=== PATIENT | male | born 1945 | race Caucasian/White ===

== ENCOUNTER → 2016-06-30 | Outpatient (CLI) | payer MEDICARE, OTHER | END | disposition home or self-care (01) | LOC: GMAB 14:54 | PROVIDERS: ATTEND Family Medicine | DX: N39.0 Urinary tract infection, site not specified (principal); Z12.5 Encounter for screening for malignant neoplasm of prostate; R53.82 Chronic fatigue, unspecified; I10 Essential (primary) hypertension | CPT/HCPCS: 84403; 84443; 87086; 87088; 87186; G0103 ==

== ENCOUNTER → 2016-09-01 | Outpatient (CLI) | payer MEDICARE, OTHER | END | disposition home or self-care (01) | LOC: GMAB 14:51 | PROVIDERS: ATTEND Family Medicine | DX: R53.82 Chronic fatigue, unspecified (principal) ==

== ENCOUNTER → 2017-07-06 | Outpatient (CLI) | payer MEDICARE, OTHER | LOC: GMAB 14:58 | PROVIDERS: ATTEND Family Medicine | DX: E53.8 Deficiency of other specified B group vitamins (principal); R53.82 Chronic fatigue, unspecified; I10 Essential (primary) hypertension; Z12.5 Encounter for screening for malignant neoplasm of prostate | CPT/HCPCS: 82607; 82746; 84403; 84443; G0103 ==

== ENCOUNTER → 2017-10-08 | Outpatient (CLI) | payer MEDICARE, OTHER ==
--- NOTE | 2017-10-08 10:33 | RAD ---
EXAM DESCRIPTION: Elbow,Left 3 Views CLINICAL HISTORY: PAIN COMPARISON: None Available. TECHNIQUE: AP, Lateral, and Oblique FINDINGS: Three-view left elbow show deformity with cystic change in the distal humerus. Ossific densities are seen in the posterior elbow joint which may be loose bodies. Ossific densities anteriorly may be loose bodies in the joint or dystrophic calcification. There may be a joint effusion. Radial head and capitellum are normally aligned. The rotated ulnotrochlear joint is seen with spurring at the olecranon and coronoid processes. Spurring is seen at the radial head neck junction. There is complete cartilage loss with sclerosis and eburnation seen on the AP view. 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 Electronically signed by: Ryan Castro MD 10/08/2017 10:31 AM CDT
== END ==
LOC: RAD 08:40
PROVIDERS: ATTEND Orthopaedic Surgery
DX: M25.522 Pain in left elbow (principal)

== ENCOUNTER → 2018-01-20 | Outpatient (CLI) | payer MEDICARE, OTHER | LOC: GMAE 14:50 | PROVIDERS: ATTEND Family Medicine | DX: D64.9 Anemia, unspecified (principal) ==

== ENCOUNTER → 2018-02-18 | Outpatient (CLI) | payer MEDICARE, OTHER | LOC: LAB.O 12:49 | PROVIDERS: ATTEND Internal Medicine Gastroenterology | DX: R19.2 Visible peristalsis (principal) ==

== ENCOUNTER → 2018-07-08 | Outpatient (CLI) | payer MEDICARE, OTHER | LOC: GMAE 10:11 | PROVIDERS: ATTEND Family Medicine | DX: I10 Essential (primary) hypertension (principal) ==

== ENCOUNTER → 2019-02-15 | Outpatient (CLI) | payer MEDICARE, OTHER ==
--- NOTE | 2019-02-16 09:47 | MRI ---
EXAM DESCRIPTION: Lumbar Spine w/o Contrast : Magnetic Resonance Imaging. CLINICAL HISTORY: RADICULOPATHY COMPARISON: LUMBAR TECHNIQUE: Multiplanar, multiple standard sequences, non contrast MRI, lumbar spine. FINDINGS: L5-S1: The disc is well visualized on axial T2 series 501, image 3. Disc desiccation and minimal disc space loss. Tiny posterior midline bulge. Posterior elements unremarkable. Bilateral foramina are patent. L4-L5: Trace anterolisthesis. Disc desiccation with disc space maintained. Bilateral hypertrophic facet arthrosis with effusion in the right facet and thickened posterior ligaments. AP canal diameter 9 mm. Disc bulge into the left foramen with focal hyperintense T2 annular fissure. Moderate foraminal narrowing. Mild right foraminal narrowing. Edema posterior to right facet. L3-L4: Disc desiccation and tiny posterior bulge. Disc space maintained. Hypertrophic bilateral facet arthrosis and thickening of the ligaments. AP canal diameter 12 mm. Mild bilateral foraminal narrowing. L2-L3: Disc desiccation with disc space maintained. Tiny posterior bulge. Bilateral mild facet arthrosis and ligament thickening with mild canal narrowing. Bilateral foramina are patent. Normal signal in the L1-2 disc with anterior bulging and disc space maintained. No posterior bulging. Canal and foramina are patent. Posterior elements unremarkable. Circumscribed hyperintense T1 and T2 hemangioma anterior L2 vertebral body underlying the superior endplate. Normal signal in the T12-L1 disc with disc space maintained. Posterior elements unremarkable. Canal and foramina are patent. Conus termination is below the disc space. No significant scoliosis. Paravertebral soft tissues negative.. Distal cord normal signal and caliber. Minimal marrow edema bilateral L5 pedicles. Normal marrow signal in the remaining vertebral bodies and the posterior elements. Vertebral bodies are not compressed at any level. IMPRESSION: 1. Multifactorial mild central canal stenosis at L4-L5 with trace anterolisthesis. Disc bulge in the left foramen annular fissure abutting the left L4 nerve. Minimal edema posterior to the right facet with bilateral arthrosis. 2. Multiple levels of desiccated discs. Moderate bulge at L2-L3 without canal stenosis. Bilateral marrow edema in the L5 pedicles is most likely a stress reaction with no definite fractures. Electronically signed by: Hernan Xavier MD 02/16/2019 9:45 AM CDT
== END ==
LOC: MRI 10:00
PROVIDERS: ATTEND Family Medicine
DX: M51.16 Intervertebral disc disorders with radiculopathy, lumbar region (principal); M48.061 Spinal stenosis, lumbar region without neurogenic claudication; M43.16 Spondylolisthesis, lumbar region

== ENCOUNTER 2020-04-20 13:09 | Emergency (ER) | payer MEDICARE, OTHER ==
--- NOTE | 2020-04-20 13:37 | ED.PDOC ---
History of Present Illness - General Chief Complaint: Trauma Stated Complaint: fall left elbow and left knee Time Seen by Provider: 04/20/20 13:35 Source: patient, RN notes reviewed, Vital Signs reviewed, family - History of Present Illness Initial Comments: This is a 74-year-old male with longstanding history of degenerative changes in the left elbow presenting to the emergency department with left elbow swelling and pain after a mechanical ground-level fall that occurred yesterday. He is taken ibuprofen without any improvement. He reports decreased range of motion to the elbow due to pain. He has had similar symptoms before in the past and required a aspiration of joint fluid. He denies any fever. He denies any head injury or loss of consciousness. He denies any neck or back pain. His only other injury is superficial abrasions over the left knee and tib-fib. Last DTaP is unknown. Allergies/Adverse Reactions: Allergies NO KNOWN ALLERGY Allergy (Unverified 04/20/20 13:39) Home Medications: Ambulatory Orders Acetaminophen W/ Codeine [Tylenol/Codeine #4 300-60 mg] 1 - 2 tablet PO Q6H PRN #20 tab 04/20/20 Apixaban [Eliquis] 04/20/20 Atorvastatin Calcium 40 mg PO 04/20/20 Losartan Potassium 50 mg PO 04/20/20 Pramipexole Dihydrochloride [Pramipexole Dihydrochlori] 0.125 mg PO 04/20/20 Sotalol HCl 80 mg PO DAILY 04/20/20 Review of Systems - Review of Systems Constitutional: Denies: chills, fever EENTM: Denies: eye pain, nose congestion Respiratory: Denies: cough, orthopnea, short of breath Cardiology: Denies: chest pain, edema, palpitations Gastrointestinal/Abdominal: Denies: abdominal pain, nausea, vomiting Genitourinary: Denies: dysuria, hematuria Musculoskeletal: States: joint pain, joint swelling. Denies: back pain, neck pain Skin: States: lesions. Denies: rash Past Medical History (General) - Patient Medical History Hx Cardiac Disorders: Yes Hx Congestive Heart Failure: No Hx Pacemaker: No Hx Hypertension: Yes - since 15 yr old Hx Diabetes: No Hx MRSA: No Family Medical History - Family History Mother Family History: Unknown Living Status: Unknown Physical Exam - Physical Exam General Appearance: Alert, Comfortable Ears, Nose, Throat: normal ENT inspection, normal pharynx Neck: non-tender, full range of motion, supple Respiratory: chest non-tender, lungs clear, normal breath sounds, no respiratory distress Cardiovascular/Chest: normal peripheral pulses, regular rate, rhythm, no edema, no gallop, no JVD, no murmur Peripheral Pulses: radial,right: 2+, radial,left: 2+ Gastrointestinal/Abdominal: non tender, soft Back Exam: normal inspection, no CVA tenderness, no vertebral tenderness Extremity: normal capillary refill, swelling - Left elbow, other - There is swelling and effusion of the left elbow, no erythema, no increased warmth. He has decreased extension of the elbow due to pain. There is no clear deformity. Skin Exam: normal color, warm/dry Progress - Progress Progress: 04/20/20 14:35 Rechecked. Discussed x-ray findings and plan for aspiration of bursitis. Patient states he has longstanding history of previous bursitis requiring aspiration in the past. He also has a history of a remote football injury back in the 60s. He states this happens from time to time with minor injuries. 04/20/20 15:15 Rechecked. Discussed plan for discharge home. Patient feeling better after [place] and aspiration. Will place in Luke wrap and sling for comfort, home with pain medication. Strict warnings given to return the emergency room for worsening pain, increased swelling, redness, fever, or any other concerns DDx: Fracture, contusion, olecranon bursitis, low suspicion for septic arthritis/bursitis MDM: Patient with olecranon bursitis and decreased range of motion of the elbow due to pain. History of a previous elbow fracture and recurrent bursitis. Elbow is not warm or erythematous, low suspicion for septic arthritis. X-ray showed no acute fracture, but moderate degenerative changes. Aspiration was performed, results pending at time of discharge. Gopi Dodson DO [facility] #[id number] - Results/Orders Results/Orders: EXAM: X-RAY, two views of the left elbow HISTORY: fall, elbow pain and swelling. COMPARISON: Left elbow x-ray from 10/08/2017. FINDINGS: Bones: Healed fracture of the distal supracondylar humerus. No acute fracture or dislocation. Moderate degenerative changes at the elbow. Soft tissues: No focal soft tissue swelling. No joint effusion. IMPRESSION: 1. No acute fracture. 2. Moderate degenerative changes. Electronically signed by: Peng Sterling MD 04/20/2020 2:16 PM [employer] Procedures - Additional Procedures Progress: PROCEDURE NOTE 04/20/20 15:05 Aspiration of left olecranon bursitis performed at the bedside. Sterile drape and prep with Betadine. Local anesthetic with lidocaine 1%. 18- gauge needle was advanced from a lateral approach into the olecranon bursa and approximately 40 cc of grossly bloody synovial fluid was obtained. No complications. Patient tolerated well. Departure - Departure Clinical Impression: Olecranon bursitis of left elbow, Abrasion, leg w/o infection Fall Qualifiers: Encounter type: initial encounter Qualified Code(s): W19.XXXA - Unspecified fall, initial encounter Elbow contusion Qualifiers: Encounter type: initial encounter Laterality: left Qualified Code(s): S50.02XA - Contusion of left elbow, initial encounter Disposition: Discharge to Home or Self Care Departure Forms: ED Discharge - Pt. Copy, Patient Portal Self Enrollment Instructions: DI for Trauma Diet: resume usual diet Activity: increase activity as tolerated Referrals: DENITA PARMAR MD [Primary Care Provider] - 1-5 Days Jonathon Ramos MD [Active Staff] - 1-5 Days Prescriptions: Acetaminophen W/ Codeine [Tylenol/Codeine #4 300-60 mg] 1 - 2 tablet PO Q6H PRN #20 tab PRN Reason: Moderate To Severe Pain Home Medications: Ambulatory Orders Acetaminophen W/ Codeine [Tylenol/Codeine #4 300-60 mg] 1 - 2 tablet PO Q6H PRN #20 tab 04/20/20 Apixaban [Eliquis] 04/20/20 Atorvastatin Calcium 40 mg PO 04/20/20 Losartan Potassium 50 mg PO 04/20/20 Pramipexole Dihydrochloride [Pramipexole Dihydrochlori] 0.125 mg PO 04/20/20 Sotalol HCl 80 mg PO DAILY 04/20/20
[2020-04-20 13:39] VITALS: TEMP 97.6
[2020-04-20] MEDS ORDERED: HYDROcodone 7.5MG/APAP 325MG 1 EA TAB PO ONE (13:58)
[2020-04-20] MEDS ORDERED: TETANUS,DIPHTHERIA,PERTUSSIS 1 EA SYG IM ONE (13:59)
--- NOTE | 2020-04-20 14:18 | RAD ---
EXAM: X-RAY, two views of the left elbow HISTORY: fall, elbow pain and swelling. COMPARISON: Left elbow x-ray from 10/08/2017. FINDINGS: Bones: Healed fracture of the distal supracondylar humerus. No acute fracture or dislocation. Moderate degenerative changes at the elbow. Soft tissues: No focal soft tissue swelling. No joint effusion. IMPRESSION: 1. No acute fracture. 2. Moderate degenerative changes. Electronically signed by: Peng Sterling MD 04/20/2020 2:16 PM [facility]
[2020-04-20] MEDS ORDERED: LIDOCAINE 1% 10 ML VIAL INJ ONE (14:50)
[2020-04-20 15:48] VITALS: BP 105/76; O2SAT 97
== END 2020-04-20 15:30 | disposition home or self-care (01) ==
LOC: ER 13:09
DX: S50.02XA Contusion of left elbow, initial encounter (principal); M70.22 Olecranon bursitis, left elbow; S80.212A Abrasion, left knee, initial encounter; S80.812A Abrasion, left lower leg, initial encounter; I51.9 Heart disease, unspecified; I10 Essential (primary) hypertension; Z79.899 Other long term (current) drug therapy; W18.39XA Other fall on same level, initial encounter; Y92.9 Unspecified place or not applicable; Z87.81 Personal history of (healed) traumatic fracture

== ENCOUNTER → 2020-05-08 | Outpatient (CLI) | payer MEDICARE, OTHER | LOC: GMAE 14:25 | PROVIDERS: ATTEND Family Medicine | DX: R53.83 Other fatigue (principal) ==